=== PATIENT | female | born 1965 | race Hispanic/Latino ===

== ENCOUNTER 2018-08-23 23:25 | Inpatient (IN) | payer MEDICAID ==
[~2018-08-23] VITALS: Ht 154.9 cm; Wt 72.6 kg
[2018-08-23] MEDS ORDERED: MAGNESIUM 2GM PREMIX 50ML 50 ML IV ONE (23:32)
[2018-08-23] MEDS ORDERED: CEFTRIAXONE SODIUM 2 GM VIAL ONE (23:38)
[2018-08-23] MEDS ORDERED: ALBUTEROL SULFATE 0.083% 2.5 MG/3 ML INH IH ONE (23:41)
[2018-08-24 00:10] LABS: BASOPHILS % (AUTO) 0.5 % (0.0-5.0); EOSINOPHILS % (AUTO) 0.2 % (0.0-8.0); HEMATOCRIT 41.1 % (36-48); LYMPHOCYTES % (AUTO) 21.4 % (21.0-51.0); MEAN CORPUSCULAR HEMOGLOBIN 29.5 pg (27.0-33.0); MEAN CORPUSCULAR HGB CONC 32.9 g/dL (32.0-36.0); MEAN CORPUSCULAR VOLUME 89.5 fL (79-99); MONOCYTES % (AUTO) 2.4 % (3.0-13.0); NEUTROPHILS % (AUTO) 75.5 % (40.0-77.0); PLATELET COUNT (AUTO) 289 K/uL (130-400); RED BLOOD CELL COUNT(AUTO) 4.59 MIL/uL (4.00-5.50); RED CELL DISTRIBUTION WIDTH 14.9 % (11.0-15.5); WHITE BLOOD COUNT (AUTO) 11.1 K/uL (4.8-10.8)
[2018-08-24 00:19] LABS: CREATININE 0.9 mg/dL (0.5-1.5); POTASSIUM 3.4 mmol/L (3.5-5.1)
[2018-08-24 00:22] LABS: INR 0.89 (0.85-1.15); PARTIAL THROMBOPLASTIN TIME 22.4 SEC (26.3-35.5); PROTHROMBIN TIME 9.4 SEC (9.6-11.6)
[2018-08-24 00:23] LABS: ALBUMIN 3.9 g/dL (3.5-5.0); BILIRUBIN,DIRECT 0.1 mg/dL (0.0-0.3); BILIRUBIN,TOTAL 0.3 mg/dL (0.2-1.0); TOTAL PROTEIN, SERUM 7.9 g/dL (6.0-8.3)
[2018-08-24 00:32] LABS: B-TYPE NATRIURETIC PEPTIDE < 5 pg/mL (0-100)
[2018-08-24 01:10] LABS: AMPHET/METH SCREEN,URINE NEGATIVE (NEGATIVE); BARBITURATE SCREEN, URINE NEGATIVE (NEGATIVE); BENZODIAZEPINES SCREEN,URINE POSITIVE (NEGATIVE); CANNABINOID SCREEN,URINE NEGATIVE (NEGATIVE); COCAINE SCREEN,URINE NEGATIVE (NEGATIVE); OPIATE SCREEN,URINE NEGATIVE (NEGATIVE); PHENCYCLIDINE SCREEN,URINE NEGATIVE (NEGATIVE)
[2018-08-24] MEDS ORDERED: LORAZEPAM 2 MG/ML 1 ML VIAL ONE (03:00)
[2018-08-24] MEDS ORDERED: PROMETHAZINE/CODEINE 6.25-10MG/5ML CUP PO PRN (04:15)
[2018-08-24] MEDS ORDERED: LORAZEPAM 2 MG/ML 1 ML VIAL IVP SCH (04:15)
[2018-08-24] MEDS ORDERED: ONDANSETRON HCL 4 MG/2 ML VIAL IVP PRN (04:15)
[2018-08-24] MEDS ORDERED: ACETAMINOPHEN 325 MG TAB PO PRN (04:15)
[2018-08-24] MEDS ORDERED: AZITHROMYCIN 500MG+NS 250ML 250 ML IV ONE (04:24)
[2018-08-24] MEDS: AZITHROMYCIN 500MG+NS 250ML 250 ML IV SCH (04:30)
[2018-08-24] MEDS ORDERED: IPRATROPIUM/ALBUTEROL SULFATE 3 ML SOLUTION IH ONE ×2 (05:31→09:56)
[2018-08-24] MEDS: IPRATROPIUM/ALBUTEROL SULFATE 3 ML SOLUTION IH SCH ×3 (05:33→14:00)
[2018-08-24 07:29] LABS: ABG BASE EXCESS -4.3 mmol/L (-2.0-3.0); ABG HCO3 20.7 mmol/L (21.0-28.0); ABG OXYGEN SATURATION 99.8 % (95.0-99.0); ABG PCO2 38 mmHg (32-45)
[2018-08-24] MEDS ORDERED: PROMETHAZINE/CODEINE 6.25-10MG/5ML CUP ONE (07:50)
[2018-08-24] MEDS ORDERED: DIAZEPAM 5 MG TABLET ONE (08:18)
[2018-08-24] MEDS ORDERED: DEXAMETHASONE SOD PHOSPHATE 4 MG/ML 1ML VIAL IVP SCH (09:00)
[2018-08-24 10:35] VITALS: BP 158/91
[2018-08-24] MEDS ORDERED: LORAZEPAM 2 MG/ML 1 ML VIAL IVP PRN (10:45)
[2018-08-24 11:00] VITALS: BP 149/87
[2018-08-24] MEDS ORDERED: IBUP-2077 PO (11:23)
[2018-08-24] MEDS ORDERED: FERS325 PO (11:23)
[2018-08-24] MEDS ORDERED: IPRAHFA IH (11:23)
[2018-08-24] MEDS ORDERED: ALBU8.5H8 IH (11:23)
[2018-08-24] MEDS ORDERED: PRED20TA3 PO (11:23)
[2018-08-24] MEDS ORDERED: BUDE10.2 IH (11:23)
[2018-08-24] MEDS ORDERED: AMOX1TAB16 PO (11:23)
[2018-08-24] MEDS: SODIUM CHLORIDE 0.9% 1000ML 1,000 ML IV SCH (11:41)
[2018-08-24] MEDS ORDERED: ALBUTEROL SULFATE 0.083% 2.5 MG/3 ML INH IH PRN (15:30)
[2018-08-24 16:00] VITALS: BP 137/92
[2018-08-24] MEDS: IPRATROPIUM 0.5 MG/2.5 ML INH IH SCH ×2 (18:40→23:28)
[2018-08-24] MEDS: BUDESONIDE 0.5 MG/2 ML INH IH SCH (18:40)
[2018-08-24] MEDS ORDERED: POTASSIUM CHLORIDE 20MEQ/100ML 100 ML IV PRN (19:00)
[2018-08-24] MEDS ORDERED: POTASSIUM CHLORIDE 10% ELIXIR 20 MEQ/15 ML UDCUP PO PRN (19:00)
[2018-08-24] MEDS ORDERED: DEXTROSE 50%-WATER 50 ML DISP.SYRIN IV PRN (19:00)
[2018-08-24] MEDS ORDERED: POTASSIUM CHLORIDE 20 MEQ ERTAB PO PRN (19:00)
[2018-08-24] MEDS ORDERED: LIDOCAINE HCL-MPF 1% 2ML VIAL IVP PRN (19:00)
[2018-08-24] MEDS ORDERED: GLUCAGON 1MG KIT 1 MG ML IM PRN (19:00)
[2018-08-24 19:20] LABS: APPEARANCE,URINE Clear (CLEAR); BILIRUBIN,URINE Negative (NEGATIVE); COLOR,URINE Yellow (YELLOW); GLUCOSE, URINE (UA) TRACE mg/dL (NEGATIVE); KETONES,URINE Negative (NEGATIVE); LEUKOCYTE ESTERASE ,URINE Negative (NEGATIVE); NITRATE,URINE Negative (NEGATIVE); OCCULT BLOOD,URINE Small (NEGATIVE); PROTEIN,URINE Negative (NEGATIVE); UROBILINOGEN,URINE 0.2 mg/dL (0.2-1.0)
[2018-08-24 19:39] LABS: BACTERIA,URINE Few /HPF (None Seen); WBC,URINE 0-1 /HPF (0-1)
[2018-08-24 19:45] VITALS: BP 136/73
[2018-08-24] MEDS: MONTELUKAST SODIUM 10 MG TAB PO SCH (20:46)
[2018-08-24] MEDS: METHYLPREDNISOLONE SOD SUCC 40MG/ML 1ML IVP SCH (20:46)
[2018-08-24] MEDS: FAMOTIDINE 20MG TAB 20 MG TAB PO SCH (20:46)
[2018-08-24] MEDS: LORAZEPAM 2 MG/ML 1 ML VIAL IVP PRN (20:49)
[2018-08-24] MEDS: ACETAMINOPHEN 325 MG TAB PO PRN (22:31)
[2018-08-24 23:08] VITALS: BP 130/69
[2018-08-25] MEDS: DIAZEPAM 5 MG TABLET PO PRN ×2 (01:36→08:23)
[2018-08-25 03:40] VITALS: BP 145/87
[2018-08-25 04:45] LABS: BASOPHILS % (AUTO) 0.1 % (0.0-5.0); HEMATOCRIT 36.7 % (36-48); LYMPHOCYTES % (AUTO) 9.8 % (21.0-51.0); MEAN CORPUSCULAR HEMOGLOBIN 29.5 pg (27.0-33.0); MEAN CORPUSCULAR HGB CONC 33.3 g/dL (32.0-36.0); MEAN CORPUSCULAR VOLUME 88.5 fL (79-99); NEUTROPHILS % (AUTO) 87.1 % (40.0-77.0); PLATELET COUNT (AUTO) 281 K/uL (130-400); RED BLOOD CELL COUNT(AUTO) 4.15 MIL/uL (4.00-5.50); WHITE BLOOD COUNT (AUTO) 16.8 K/uL (4.8-10.8)
[2018-08-25 05:04] LABS: CREATININE 0.9 mg/dL (0.5-1.5)
[2018-08-25] MEDS: AZITHROMYCIN 500MG+NS 250ML 250 ML IV SCH (06:02)
[2018-08-25] MEDS: IPRATROPIUM 0.5 MG/2.5 ML INH IH SCH ×5 (07:16→21:47)
[2018-08-25] MEDS: BUDESONIDE 0.5 MG/2 ML INH IH SCH ×2 (07:25→18:34)
[2018-08-25 08:00] VITALS: BP 142/89
[2018-08-25] MEDS: METHYLPREDNISOLONE SOD SUCC 40MG/ML 1ML IVP SCH ×2 (08:23→20:39)
[2018-08-25] MEDS: FAMOTIDINE 20MG TAB 20 MG TAB PO SCH ×2 (08:26→20:39)
[2018-08-25] MEDS: ACETYLCYSTEINE 10% 100MG/ML 4ML VIAL IH SCH ×4 (10:47→21:47)
[2018-08-25 11:00] VITALS: BP 144/87
[2018-08-25] MEDS: SODIUM CHLORIDE 0.9% 1000ML 1,000 ML IV SCH ×3 (12:15→20:39)
[2018-08-25] MEDS: LORAZEPAM 2 MG/ML 1 ML VIAL IVP PRN ×2 (14:05→22:19)
[2018-08-25] MEDS: ACETAMINOPHEN 325 MG TAB PO PRN (14:26)
[2018-08-25 16:00] VITALS: BP 140/80
[2018-08-25] MEDS ORDERED: ALPR2TAB7 PO (17:15)
[2018-08-25] MEDS ORDERED: D-ME118S56 PO (17:15)
[2018-08-25] MEDS ORDERED: LORA10CA9 PO (17:15)
[2018-08-25] MEDS ORDERED: LISI-617 PO (17:15)
[2018-08-25] MEDS ORDERED: SERT50TA12 PO (17:15)
[2018-08-25] MEDS ORDERED: MONT10TA24 PO (17:15)
[2018-08-25] MEDS ORDERED: HYDR-4068 PO (17:15)
[2018-08-25] MEDS ORDERED: OMEP40CA37 PO (17:15)
[2018-08-25] MEDS ORDERED: PREG75 PO (17:15)
[2018-08-25 20:13] VITALS: BP 120/90
[2018-08-25] MEDS: MONTELUKAST SODIUM 10 MG TAB PO SCH (20:39)
[2018-08-26 00:15] VITALS: BP 120/84
[2018-08-26] MEDS: IPRATROPIUM 0.5 MG/2.5 ML INH IH SCH ×6 (02:19→22:30)
[2018-08-26] MEDS: ACETYLCYSTEINE 10% 100MG/ML 4ML VIAL IH SCH ×3 (02:19→10:18)
[2018-08-26] MEDS: AZITHROMYCIN 500MG+NS 250ML 250 ML IV SCH (03:47)
[2018-08-26] MEDS: ACETAMINOPHEN 325 MG TAB PO PRN (03:51)
[2018-08-26 04:00] VITALS: BP 130/88
[2018-08-26 05:56] LABS: BASOPHILS % (AUTO) 0.1 % (0.0-5.0); HEMATOCRIT 38.8 % (36-48); LYMPHOCYTES % (AUTO) 10.6 % (21.0-51.0); MEAN CORPUSCULAR HEMOGLOBIN 29.6 pg (27.0-33.0); MEAN CORPUSCULAR HGB CONC 33.8 g/dL (32.0-36.0); MEAN CORPUSCULAR VOLUME 87.7 fL (79-99); MONOCYTES % (AUTO) 4.7 % (3.0-13.0); NEUTROPHILS % (AUTO) 84.6 % (40.0-77.0); PLATELET COUNT (AUTO) 282 K/uL (130-400); RED BLOOD CELL COUNT(AUTO) 4.43 MIL/uL (4.00-5.50); RED CELL DISTRIBUTION WIDTH 15.3 % (11.0-15.5); WHITE BLOOD COUNT (AUTO) 15.2 K/uL (4.8-10.8)
[2018-08-26 06:07] LABS: POTASSIUM 4.1 mmol/L (3.5-5.1)
[2018-08-26] MEDS: BUDESONIDE 0.5 MG/2 ML INH IH SCH ×2 (06:37→18:22)
[2018-08-26 07:00] VITALS: BP 132/90
[2018-08-26] MEDS: DIAZEPAM 5 MG TABLET PO PRN (08:11)
[2018-08-26] MEDS: FAMOTIDINE 20MG TAB 20 MG TAB PO SCH ×2 (08:11→20:42)
[2018-08-26] MEDS: METHYLPREDNISOLONE SOD SUCC 40MG/ML 1ML IVP SCH ×2 (08:12→20:42)
[2018-08-26] MEDS ORDERED: ALPRAZOLAM 1 MG TAB PO SCH (10:12)
[2018-08-26] MEDS ORDERED: IBUPROFEN 800 MG TAB PO PRN (10:15)
[2018-08-26] MEDS ORDERED: BROMPHENIR PSEUDOEPHED DM PO PRN (10:15)
[2018-08-26 11:00] VITALS: BP 135/95
[2018-08-26] MEDS: LORAZEPAM 2 MG/ML 1 ML VIAL IVP PRN (12:32)
[2018-08-26] MEDS: SERTRALINE HCL 50 MG TABLET PO SCH (12:41)
[2018-08-26] MEDS: LISINOPRIL 5 MG TABLET PO SCH (12:41)
[2018-08-26] MEDS: PANTOPRAZOLE SODIUM 40 MG TABLET.DR PO SCH (12:41)
[2018-08-26] MEDS: AMOXICILLIN/POTASSIUM CLAV 875-125 TABLET PO SCH ×2 (12:41→20:41)
[2018-08-26] MEDS: SODIUM CHLORIDE 0.9% 1000ML 1,000 ML IV SCH ×2 (12:42→20:52)
[2018-08-26] MEDS: PREGABALIN 75 MG CAPSULE PO SCH ×2 (12:42→20:41)
[2018-08-26] MEDS: ALPRAZOLAM 1 MG TAB PO SCH ×2 (14:00→20:41)
[2018-08-26 16:00] VITALS: BP 136/83
[2018-08-26 20:00] VITALS: BP 132/84
[2018-08-26] MEDS: MONTELUKAST SODIUM 10 MG TAB PO SCH (20:41)
[2018-08-26] MEDS ORDERED: MONTELUKAST SODIUM 10 MG TAB PO SCH (21:00)
[2018-08-27] VITALS: BP 144/80
[2018-08-27] MEDS: IPRATROPIUM 0.5 MG/2.5 ML INH IH SCH ×3 (02:20→10:06)
[2018-08-27] MEDS: ACETAMINOPHEN 325 MG TAB PO PRN (02:48)
[2018-08-27] MEDS: LORAZEPAM 2 MG/ML 1 ML VIAL IVP PRN (02:49)
[2018-08-27 04:00] VITALS: BP 142/92
[2018-08-27] MEDS: AZITHROMYCIN 500MG+NS 250ML 250 ML IV SCH (04:13)
[2018-08-27] MEDS: BUDESONIDE 0.5 MG/2 ML INH IH SCH (06:32)
[2018-08-27 07:30] VITALS: BP 129/98
[2018-08-27] MEDS ORDERED: PREDNISONE 20 MG TABLET PO SCH (08:00)
[2018-08-27] MEDS ORDERED: LEVO500T2 PO (08:57)
[2018-08-27] MEDS ORDERED: FERROUS SULFATE 325 MG TABLET.DR PO SCH (09:00)
[2018-08-27] MEDS ORDERED: LORATADINE 10 MG TABLET PO SCH (09:00)
[2018-08-27] MEDS: AMOXICILLIN/POTASSIUM CLAV 875-125 TABLET PO SCH (09:54)
[2018-08-27] MEDS: METHYLPREDNISOLONE SOD SUCC 40MG/ML 1ML IVP SCH (09:54)
[2018-08-27] MEDS: SERTRALINE HCL 50 MG TABLET PO SCH (09:55)
[2018-08-27] MEDS: ALPRAZOLAM 1 MG TAB PO SCH (09:55)
[2018-08-27] MEDS: LISINOPRIL 5 MG TABLET PO SCH (09:55)
[2018-08-27] MEDS: PREGABALIN 75 MG CAPSULE PO SCH (09:55)
[2018-08-27] MEDS: PANTOPRAZOLE SODIUM 40 MG TABLET.DR PO SCH (09:55)
[2018-08-27] MEDS: FAMOTIDINE 20MG TAB 20 MG TAB PO SCH (09:55)
[2018-08-27 11:00] VITALS: BP 140/91
== END 2018-08-27 11:50 | disposition home or self-care (01) | DRG 720 ==
LOC: EDH 23:25 → EDHIP 23:26 → 4CH 08-24 10:31 → 3BH 08-25 13:17
PROVIDERS: ADMIT Hospitalist; ATTEND Hospitalist
PROC: 5A09357 Assistance with Respiratory Ventilation, Less than 24 Consecutive Hours, Continuous Positive Airway Pressure (ICD-10-PCS; principal; 2018-08-23)
PROC: 5A09357 Assistance with Respiratory Ventilation, Less than 24 Consecutive Hours, Continuous Positive Airway Pressure (ICD-10-PCS; 2018-08-24)
DX: A41.9 Sepsis, unspecified organism (principal); J45.902 Unspecified asthma with status asthmaticus; I10 Essential (primary) hypertension; F41.9 Anxiety disorder, unspecified; R06.03 Acute respiratory distress
CPT/HCPCS: 36415; 36600; 71045; 72040; 72100; 74018; 80048; 80076; 80305; 81001; 82550; 82803; 83605; 83880; 84484; 85025; 85610; 85730; 87040; 87088; 87804; 93005; 94640; 94644; 94660; 94664; J0456; J0696; J1100; J2060; J2405; J2920; J3475; J7030; J7608; Q0169

== ENCOUNTER 2018-10-28 18:17 | Emergency (ER) | payer MEDICAID ==
[~2018-10-28 18:17] MED LIST: ALBU8.5H8 IH; ALPR2TAB7 PO; BUDE10.2 IH; D-ME118S56 PO; FERS325 PO; HYDR-4068 PO; IBUP-2077 PO; IPRAHFA IH; LEVO500T2 PO; LISI-617 PO; LORA10CA9 PO; MONT10TA24 PO; OMEP40CA37 PO; PRED20TA3 PO; PREG75 PO; SERT50TA12 PO
[2018-10-28 18:59] LABS: BASOPHILS % (AUTO) 0.8 % (0.0-5.0); EOSINOPHILS % (AUTO) 0.7 % (0.0-8.0); LYMPHOCYTES % (AUTO) 30.7 % (21.0-51.0); MEAN CORPUSCULAR HEMOGLOBIN 28.6 pg (27.0-33.0); MEAN CORPUSCULAR HGB CONC 33.1 g/dL (32.0-36.0); MEAN CORPUSCULAR VOLUME 86.5 fL (79-99); NEUTROPHILS % (AUTO) 56.8 % (40.0-77.0); PLATELET COUNT (AUTO) 295 K/uL (130-400); RED BLOOD CELL COUNT(AUTO) 4.63 MIL/uL (4.00-5.50); RED CELL DISTRIBUTION WIDTH 14.1 % (11.0-15.5); WHITE BLOOD COUNT (AUTO) 8.8 K/uL (4.8-10.8)
[2018-10-28 19:38] LABS: CREATININE 0.8 mg/dL (0.5-1.5); POTASSIUM 3.5 mmol/L (3.5-5.1)
[2018-10-28 19:42] LABS: INR 0.94 (0.85-1.15); PROTHROMBIN TIME 9.9 SEC (9.6-11.6)
[2018-10-28 19:43] LABS: ALBUMIN 3.7 g/dL (3.5-5.0); BILIRUBIN,TOTAL 0.5 mg/dL (0.2-1.0); TOTAL PROTEIN, SERUM 7.3 g/dL (6.0-8.3)
[2018-10-28] MEDS ORDERED: ALBUTEROL SULFATE 0.083% 2.5 MG/3 ML INH IH ONE (19:46)
[2018-10-28] MEDS ORDERED: IPRATROPIUM/ALBUTEROL SULFATE 3 ML SOLUTION IH ONE ×2 (20:31→22:03)
[2018-10-28] MEDS ORDERED: SODIUM CHLORIDE 0.9% 1000ML 2,000 ML IV ONE (22:08)
[2018-10-28] MEDS ORDERED: METHYLPREDNISOLONE SOD SUCC 125MG/2ML VIAL ONE (22:08)
== END 2018-10-29 01:05 | disposition home or self-care (01) ==
LOC: EDH 18:17
DX: J45.901 Unspecified asthma with (acute) exacerbation (principal); K52.9 Noninfective gastroenteritis and colitis, unspecified; I10 Essential (primary) hypertension
CPT/HCPCS: 36415; 71045; 80053; 82550; 84484; 85025; 85610; 85730; 87804 ×2; 93005; 94640 ×3; 96361; 96374; 99285; J2930; J7030

== ENCOUNTER 2019-01-02 13:14 | Emergency (ER) | payer MEDICAID ==
[2019-01-02] MEDS ORDERED: ONDANSETRON HCL 4 MG/2 ML VIAL ONE (13:27)
[2019-01-02 13:40] LABS: BASOPHILS % (AUTO) 0.5 % (0.0-5.0); EOSINOPHILS % (AUTO) 0.9 % (0.0-8.0); HEMATOCRIT 42.9 % (36-48); LYMPHOCYTES % (AUTO) 28.8 % (21.0-51.0); MEAN CORPUSCULAR HEMOGLOBIN 27.6 pg (27.0-33.0); MEAN CORPUSCULAR HGB CONC 33.1 g/dL (32.0-36.0); MEAN CORPUSCULAR VOLUME 83.4 fL (79-99); NEUTROPHILS % (AUTO) 61.8 % (40.0-77.0); NUCLEATED RED BLOOD CELLS 0.1 % (0.0-0.19); PLATELET COUNT (AUTO) 287 K/uL (130-400); RED BLOOD CELL COUNT(AUTO) 5.14 MIL/uL (4.00-5.50); RED CELL DISTRIBUTION WIDTH 14.2 % (11.0-15.5); WHITE BLOOD COUNT (AUTO) 8.1 K/uL (4.8-10.8)
[2019-01-02 13:48] LABS: CREATININE 0.7 mg/dL (0.5-1.5); POTASSIUM 3.2 mmol/L (3.5-5.1)
[2019-01-02 13:52] LABS: ALBUMIN 4.2 g/dL (3.5-5.0); BILIRUBIN,TOTAL 0.4 mg/dL (0.2-1.0); TOTAL PROTEIN, SERUM 7.7 g/dL (6.0-8.3)
[2019-01-02] MEDS ORDERED: IPRATROPIUM/ALBUTEROL SULFATE 3 ML SOLUTION IH ONE (14:13)
== END 2019-01-02 16:02 | disposition home or self-care (01) ==
LOC: EDH 13:14
DX: J45.21 Mild intermittent asthma with (acute) exacerbation (principal); J20.9 Acute bronchitis, unspecified; I10 Essential (primary) hypertension; F41.9 Anxiety disorder, unspecified; F31.9 Bipolar disorder, unspecified
CPT/HCPCS: 36415; 71045; 80053; 84484; 85025; 93005; 94640; 96374; 99284; J2405

== ENCOUNTER 2019-12-30 06:24 | Emergency (ER) | payer MEDICAID ==
[~2019-12-30 06:24] MED LIST changes: -MONT10TA24 PO; +MONT10TA26 PO; +OMEP40CA13 PO; -OMEP40CA37 PO
[2019-12-30] MEDS ORDERED: MAG HYDROX/AL HYDROX/SIMETH ES 30 ML SUSP UDCUP ONE (06:35)
[2019-12-30] MEDS ORDERED: LIDOCAINE HCL 2% VISCOUS 15 ML UDCUP ONE (06:35)
[2019-12-30] MEDS ORDERED: METHYLPREDNISOLONE SOD SUCC 125MG/2ML VIAL ONE (06:36)
[2019-12-30] MEDS ORDERED: ONDANSETRON HCL 4 MG/2 ML VIAL ONE (06:36)
[2019-12-30] MEDS ORDERED: DiphenhydrAMINE HCL 50 MG/ML VIAL ONE (06:36)
[2019-12-30] MEDS ORDERED: IPRATROPIUM/ALBUTEROL SULFATE 3 ML SOLUTION IH ONE (06:40)
[2019-12-30] MEDS ORDERED: ALBUTEROL SULFATE 0.083% 2.5 MG/3 ML INH IH ONE (06:40)
[2019-12-30 07:04] LABS: BASOPHILS % (AUTO) 0.3 % (0.0-5.0); EOSINOPHILS % (AUTO) 0.6 % (0.0-8.0); HEMATOCRIT 43.9 % (36-48); LYMPHOCYTES % (AUTO) 32.6 % (21.0-51.0); MEAN CORPUSCULAR HEMOGLOBIN 27.3 pg (27.0-33.0); MEAN CORPUSCULAR HGB CONC 31.2 g/dL (32.0-36.0); MEAN CORPUSCULAR VOLUME 87.6 fL (79-99); MONOCYTES % (AUTO) 11.4 % (3.0-13.0); NEUTROPHILS % (AUTO) 54.6 % (40.0-77.0); PLATELET COUNT (AUTO) 297 K/uL (130-400); RED BLOOD CELL COUNT(AUTO) 5.01 MIL/uL (4.00-5.50); RED CELL DISTRIBUTION WIDTH 14.5 % (11.0-15.5); WHITE BLOOD COUNT (AUTO) 9.9 K/uL (4.8-10.8)
[2019-12-30 07:12] LABS: CREATININE 0.9 mg/dL (0.5-1.5); POTASSIUM 3.9 mmol/L (3.5-5.1)
[2019-12-30 07:19] LABS: ALBUMIN 4.2 g/dL (3.5-5.0); BILIRUBIN,TOTAL 0.3 mg/dL (0.2-1.0); TOTAL PROTEIN, SERUM 7.6 g/dL (6.0-8.3)
[2019-12-30 07:20] LABS: INR 0.92 (0.85-1.15); PARTIAL THROMBOPLASTIN TIME 25.2 SEC (26.3-35.5); PROTHROMBIN TIME 9.7 SEC (9.6-11.6)
[2019-12-30 07:30] LABS: B-TYPE NATRIURETIC PEPTIDE 8 pg/mL (0-100)
[2019-12-30 07:31] LABS: APPEARANCE,URINE Clear (CLEAR); BILIRUBIN,URINE Negative (NEGATIVE); COLOR,URINE Yellow (YELLOW); GLUCOSE, URINE (UA) Negative (NEGATIVE); KETONES,URINE Negative (NEGATIVE); LEUKOCYTE ESTERASE ,URINE Negative (NEGATIVE); NITRATE,URINE Negative (NEGATIVE); OCCULT BLOOD,URINE Small (NEGATIVE); PROTEIN,URINE Negative (NEGATIVE); UROBILINOGEN,URINE 0.2 mg/dL (0.2-1.0)
[2019-12-30] MEDS ORDERED: AZITHROMYCIN 250 MG TABLET PO ONE (07:47)
[2019-12-30 07:48] LABS: BACTERIA,URINE Rare /HPF (None Seen); SQUAMOUS EPITHELIAL CELL,UR Rare /HPF (0-2); WBC,URINE 0-1 /HPF (0-1)
[2019-12-30] MEDS ORDERED: ACETAMINOPHEN EXTRA STRENGTH 500 MG TABLET ONE (07:48)
== END 2019-12-30 08:03 | disposition home or self-care (01) ==
LOC: EDH 06:24
DX: J45.901 Unspecified asthma with (acute) exacerbation (principal); J20.9 Acute bronchitis, unspecified; J11.1 Influenza due to unidentified influenza virus with other respiratory manifestations; F31.9 Bipolar disorder, unspecified; F41.9 Anxiety disorder, unspecified; I10 Essential (primary) hypertension; J44.9 Chronic obstructive pulmonary disease, unspecified
CPT/HCPCS: 36415; 71045; 80053; 81001; 82550; 83605; 83690; 83880; 84484; 85025; 85610; 85730; 87040 ×2; 87804 ×2; 93005; 94640 ×3; 96374; 96375; 99285; J1200; J2405; J2930

== ENCOUNTER 2021-06-27 10:18 | Emergency (ER) | payer MEDICAID ==
[~2021-06-27] VITALS: Ht 154.9 cm; Wt 66.7 kg
[~2021-06-27 10:18] MED LIST changes: -LISI-617 PO; +LISI-809 PO; -MONT10TA26 PO; +MONT10TA32 PO; -OMEP40CA13 PO; +OMEP40CA21 PO; +SERT-439 PO; -SERT50TA12 PO
[2021-06-27 10:44] VITALS: BP 132/89
[2021-06-27 10:53] LABS: BASOPHILS % (AUTO) 0.3 % (0.0-5.0); EOSINOPHILS % (AUTO) 1.6 % (0.0-8.0); HEMATOCRIT 43.2 % (36-48); LYMPHOCYTES % (AUTO) 30.3 % (21.0-51.0); MEAN CORPUSCULAR HEMOGLOBIN 28.3 pg (27.0-33.0); MEAN CORPUSCULAR HGB CONC 32.4 g/dL (32.0-36.0); MEAN CORPUSCULAR VOLUME 87.4 fL (79-99); MONOCYTES % (AUTO) 7.9 % (3.0-13.0); NEUTROPHILS % (AUTO) 59.5 % (40.0-77.0); PLATELET COUNT (AUTO) 296 K/uL (130-400); RED BLOOD CELL COUNT(AUTO) 4.94 MIL/uL (4.00-5.50); RED CELL DISTRIBUTION WIDTH 14.2 % (11.0-15.5); WHITE BLOOD COUNT (AUTO) 9.8 K/uL (4.8-10.8)
[2021-06-27 11:11] LABS: B-TYPE NATRIURETIC PEPTIDE 11 pg/mL (0-100)
[2021-06-27 11:22] LABS: CREATININE 0.8 mg/dL (0.5-1.5); POTASSIUM 3.4 mmol/L (3.5-5.1)
[2021-06-27 11:27] LABS: BILIRUBIN,TOTAL 0.5 mg/dL (0.2-1.0); TOTAL PROTEIN, SERUM 7.8 g/dL (6.0-8.3)
[2021-06-27 11:39] LABS: INR 0.96 (0.85-1.15); PROTHROMBIN TIME 10.5 SEC (9.6-11.6)
[2021-06-27 11:41] LABS: PARTIAL THROMBOPLASTIN TIME 22.9 SEC (26.3-35.5)
[2021-06-27 12:15] VITALS: BP 123/69
[2021-06-27] MEDS ORDERED: SOLU-MEDROL 125MG VIAL IVP ONE (12:30)
[2021-06-27] MEDS ORDERED: IPRATROPIUM/ALBUTEROL SULFATE 3 ML SOLUTION IH PRN (12:30)
[2021-06-27 12:45] VITALS: BP 112/76
[2021-06-27 13:10] LABS: AMPHET/METH SCREEN,URINE NEGATIVE (NEGATIVE); BARBITURATE SCREEN, URINE NEGATIVE (NEGATIVE); BENZODIAZEPINES SCREEN,URINE NEGATIVE (NEGATIVE); CANNABINOID SCREEN,URINE NEGATIVE (NEGATIVE); COCAINE SCREEN,URINE NEGATIVE (NEGATIVE); OPIATE SCREEN,URINE NEGATIVE (NEGATIVE); PHENCYCLIDINE SCREEN,URINE NEGATIVE (NEGATIVE)
[2021-06-27] MEDS ORDERED: PRED20 PO (15:03)
[2021-06-27 15:25] VITALS: BP 125/67
[2021-06-27] MEDS ORDERED: IPRATROPIUM/ALBUTEROL SULFATE 3 ML SOLUTION IH ONE (15:30)
== END 2021-06-27 15:26 | disposition home or self-care (01) ==
LOC: EDH 10:18
DX: J44.1 Chronic obstructive pulmonary disease with (acute) exacerbation (principal); R06.00 Dyspnea, unspecified; Z20.822 Contact with and (suspected) exposure to COVID-19; Z79.1 Long term (current) use of non-steroidal anti-inflammatories (NSAID); Z79.51 Long term (current) use of inhaled steroids; Z79.52 Long term (current) use of systemic steroids; Z79.899 Other long term (current) drug therapy
CPT/HCPCS: 36415; 71045; 80053; 80305; 82550; 83880; 84484; 85025; 85610; 85730; 87635; 93005; 94640; 96374; 99285; C9803; J2930

== ENCOUNTER 2022-08-19 04:36 | Emergency (ER) | payer MEDICAID ==
[~2022-08-19] VITALS: Ht 154.9 cm; Wt 66.2 kg
[~2022-08-19 04:36] MED LIST changes: -LISI-809 PO; +LISI5TAB21 PO; +MONT-39 PO; -MONT10TA32 PO; +PRED20 PO
[2022-08-19 05:21] LABS: BASOPHILS % (AUTO) 0.2 % (0.0-5.0); EOSINOPHILS % (AUTO) 1.3 % (0.0-8.0); HEMATOCRIT 41.6 % (36-48); LYMPHOCYTES % (AUTO) 41.1 % (21.0-51.0); MEAN CORPUSCULAR HEMOGLOBIN 27.6 pg (27.0-33.0); MEAN CORPUSCULAR HGB CONC 32.5 g/dL (32.0-36.0); MEAN CORPUSCULAR VOLUME 85.1 fL (79-99); MONOCYTES % (AUTO) 8.1 % (3.0-13.0); NEUTROPHILS % (AUTO) 48.8 % (40.0-77.0); PLATELET COUNT (AUTO) 287 K/uL (130-400); RED BLOOD CELL COUNT(AUTO) 4.89 MIL/uL (4.00-5.50); WHITE BLOOD COUNT (AUTO) 12.2 K/uL (4.8-10.8)
[2022-08-19] MEDS ORDERED: LACTATED RINGERS 1000ML 1,000 ML IV ONE (05:30)
[2022-08-19] MEDS ORDERED: MECLIZINE HCL 25 MG TABLET PO ONE (05:30)
[2022-08-19] MEDS ORDERED: ONDANSETRON 4MG INJ IVP ONE (05:30)
[2022-08-19 05:35] LABS: CREATININE 0.8 mg/dL (0.5-1.5); POTASSIUM 3.4 mmol/L (3.5-5.1)
[2022-08-19 05:38] LABS: ALBUMIN 3.9 g/dL (3.5-5.0); TOTAL PROTEIN, SERUM 7.7 g/dL (6.0-8.3)
[2022-08-19 06:15] VITALS: BP 135/62
[2022-08-19] MEDS ORDERED: MECL-226 PO (06:37)
== END 2022-08-19 07:04 | disposition home or self-care (01) ==
LOC: EDH 04:36
DX: H81.11 Benign paroxysmal vertigo, right ear (principal); M19.90 Unspecified osteoarthritis, unspecified site; I10 Essential (primary) hypertension; Z79.899 Other long term (current) drug therapy
CPT/HCPCS: 99283; 96374; 96361; 80053; 85025; 36415; J7120; J2405

== ENCOUNTER 2022-11-07 15:44 | Emergency (ER) | payer MEDICAID ==
[~2022-11-07] VITALS: Ht 154.9 cm; Wt 63.5 kg
[~2022-11-07 15:44] MED LIST changes: +MECL-226 PO
[2022-11-07] MEDS ORDERED: IPRATROPIUM 0.5 MG/2.5 ML INH IH STA (17:07)
[2022-11-07] MEDS ORDERED: ALBUTEROL 0.083% 2.5 MG/3 ML INH IH ONE (17:30)
[2022-11-07] MEDS ORDERED: SOLU-MEDROL 125MG VIAL IVP ONE (17:30)
[2022-11-07] MEDS ORDERED: OSEL75 PO (17:41)
[2022-11-07 18:24] VITALS: BP 127/72
== END 2022-11-07 18:26 | disposition home or self-care (01) ==
LOC: EDH 15:44
DX: J10.1 Influenza due to other identified influenza virus with other respiratory manifestations (principal); Z20.822 Contact with and (suspected) exposure to COVID-19; J45.909 Unspecified asthma, uncomplicated; J44.9 Chronic obstructive pulmonary disease, unspecified; F41.9 Anxiety disorder, unspecified; Z79.52 Long term (current) use of systemic steroids; Z79.899 Other long term (current) drug therapy
CPT/HCPCS: 99284; 96374; 71045; 87635; 87804 ×2; 94640; C9803; J2930

== ENCOUNTER 2022-11-27 23:45 | Emergency (ER) | payer MEDICAID ==
[~2022-11-27] VITALS: Ht 154.9 cm; Wt 61.7 kg
[~2022-11-27 23:45] MED LIST changes: +OSEL75 PO
[2022-11-27 23:46] VITALS: BP 128/68
[2022-11-28] MEDS ORDERED: MECL-262 PO (00:07)
[2022-11-28] MEDS ORDERED: MECLIZINE HCL 25 MG TABLET PO ONE (00:30)
== END 2022-11-28 00:50 | disposition home or self-care (01) ==
LOC: EDH 23:45
DX: H81.10 Benign paroxysmal vertigo, unspecified ear (principal); F41.9 Anxiety disorder, unspecified; J44.9 Chronic obstructive pulmonary disease, unspecified; Z79.899 Other long term (current) drug therapy

== ENCOUNTER 2022-12-23 00:33 | Emergency (ER) | payer MEDICAID ==
[~2022-12-23] VITALS: Ht 157.5 cm; Wt 64.4 kg
[~2022-12-23 00:33] MED LIST changes: +MECL-262 PO
[2022-12-23 00:54] LABS: BASOPHILS % (AUTO) 0.3 % (0.0-5.0); EOSINOPHILS % (AUTO) 0.8 % (0.0-8.0); HEMATOCRIT 39.2 % (36-48); LYMPHOCYTES % (AUTO) 27.2 % (21.0-51.0); MEAN CORPUSCULAR HEMOGLOBIN 28.3 pg (27.0-33.0); MEAN CORPUSCULAR HGB CONC 32.1 g/dL (32.0-36.0); MEAN CORPUSCULAR VOLUME 88.1 fL (79-99); MONOCYTES % (AUTO) 8.7 % (3.0-13.0); NEUTROPHILS % (AUTO) 62.8 % (40.0-77.0); PLATELET COUNT (AUTO) 267 K/uL (130-400); RED BLOOD CELL COUNT(AUTO) 4.45 MIL/uL (4.00-5.50); RED CELL DISTRIBUTION WIDTH 13.5 % (11.0-15.5); WHITE BLOOD COUNT (AUTO) 15.6 K/uL (4.8-10.8)
[2022-12-23] MEDS ORDERED: MORPHINE 4 MG SYG IVP ONE (01:00)
[2022-12-23] MEDS ORDERED: ONDANSETRON 4MG INJ IVP ONE (01:00)
[2022-12-23] MEDS ORDERED: LACTATED RINGERS 1000ML 1,000 ML IV ONE (01:00)
[2022-12-23 01:02] LABS: CREATININE 1.1 mg/dL (0.5-1.5)
[2022-12-23 01:05] LABS: APPEARANCE,URINE CLEAR (CLEAR); BILIRUBIN,URINE NEGATIVE (NEGATIVE); COLOR,URINE LIGHT-YELLOW (YELLOW); GLUCOSE, URINE (UA) NEGATIVE (NEGATIVE); KETONES,URINE NEGATIVE (NEGATIVE); LEUKOCYTE ESTERASE ,URINE 250 Leu/uL (NEGATIVE); NITRATE,URINE NEGATIVE (NEGATIVE); OCCULT BLOOD,URINE LARGE (NEGATIVE); PROTEIN,URINE 10 mg/dL (NEGATIVE); UROBILINOGEN,URINE 0.2 mg/dL (0.2-1.0)
[2022-12-23 01:07] LABS: ALBUMIN 3.7 g/dL (3.5-5.0); TOTAL PROTEIN, SERUM 7.1 g/dL (6.0-8.3)
[2022-12-23 01:09] LABS: BACTERIA,URINE RARE /HPF (None Seen); MUCUS,URINE RARE LPF (None Seen); RBC,URINE TNTC /HPF (0-1); SQUAMOUS EPITHELIAL CELL,UR RARE /HPF (0-2); WBC,URINE 26-50 /HPF (0-1)
[2022-12-23] MEDS ORDERED: HYDROMORPHONE 1 MG INJ IVP ONE (01:30)
[2022-12-23] MEDS ORDERED: POTASSIUM CHLORIDE 10% ELIXIR 20 MEQ/15 ML UDCUP PO ONE (01:30)
[2022-12-23] MEDS ORDERED: TAMS-1 PO (02:39)
[2022-12-23] MEDS ORDERED: CEPH500T PO (02:39)
[2022-12-23] MEDS ORDERED: IBUP-2071 PO (02:39)
[2022-12-23] MEDS ORDERED: OXYC-38 PO (02:39)
[2022-12-23] MEDS ORDERED: TAMSULOSIN HCL 0.4 MG CAP.ER.24H PO SCH (03:00)
[2022-12-23] MEDS ORDERED: KETOROLAC 15MG/ML VIAL (15MG/ML) IV ONE (03:00)
[2022-12-23 03:16] VITALS: BP 124/67
== END 2022-12-23 03:21 | disposition home or self-care (01) ==
LOC: EDH 00:33
DX: N20.1 Calculus of ureter (principal); R10.31 Right lower quadrant pain; F41.9 Anxiety disorder, unspecified; M19.90 Unspecified osteoarthritis, unspecified site; J44.9 Chronic obstructive pulmonary disease, unspecified; Z79.52 Long term (current) use of systemic steroids; Z79.899 Other long term (current) drug therapy
CPT/HCPCS: 99285; 74176; 96374; 96361; 96375; 76705; 84484; 80053; 83690; 85025; 87088; 81001; 36415; J7120; J1170; J2405; J2270; J1885

== ENCOUNTER 2023-06-28 09:16 | Emergency (ER) | payer MEDICAID ==
[~2023-06-28] VITALS: Ht 154.9 cm; Wt 73.0 kg
[~2023-06-28 09:16] MED LIST changes: -ALBU8.5H8 IH; -ALPR2TAB7 PO; +BENZ200C53 PO; -BUDE10.2 IH; -D-ME118S56 PO; -FERS325 PO; +HYDR-3421 PO; -HYDR-4068 PO; -IBUP-2077 PO; -IPRAHFA IH; -LEVO500T2 PO; -LISI5TAB21 PO; -LORA10CA9 PO; -MECL-226 PO; -MECL-262 PO; -MONT-39 PO; -OMEP40CA21 PO; -OSEL75 PO; -PRED20 PO; -PRED20TA3 PO; -PREG75 PO; -SERT-439 PO; +SUCR1TAB2 PO; +TRAZ-185 PO; +VITA-348 PO
[2023-06-28 09:56] LABS: RAPID GROUP A STREP negative (NEGATIVE); SARS-CoV-2, RNA, NAAT NEGATIVE SARS CoV-2 (NEGATIVE)
[2023-06-28] MEDS ORDERED: IPRATROPIUM/ALBUTEROL SULFATE 3 ML SOLUTION IH ONE (10:00)
[2023-06-28 10:04] VITALS: PULSE 111; RESP 20
[2023-06-28 10:07] LABS: INFLUENZA TYPE A Negative For Type A (NEGATIVE); INFLUENZA TYPE B Negative For Type B (NEGATIVE)
[2023-06-28 10:15] LABS: BASOPHILS # (AUTO) 0.03 K/uL (0.00-0.20); BASOPHILS % (AUTO) 0.3 % (0.0-5.0); EOSINOPHILS # (AUTO) 0.24 K/uL (0.00-0.70); HEMATOCRIT 40.6 % (36-48); IMMATURE GRANULOCYTE ABSOLUTE 0.05 K/uL (0-1); LYMPHOCYTES # (AUTO) 2.7 K/uL (1.0-4.8); LYMPHOCYTES % (AUTO) 22.5 % (21.0-51.0); MEAN CORPUSCULAR HEMOGLOBIN 28.8 pg (27.0-33.0); MEAN CORPUSCULAR HGB CONC 32.8 g/dL (32.0-36.0); MEAN CORPUSCULAR VOLUME 87.9 fL (79-99); MONOCYTES % (AUTO) 8.4 % (3.0-13.0); NEUTROPHILS % (AUTO) 66.4 % (40.0-77.0); PLATELET COUNT (AUTO) 273 K/uL (130-400); RED BLOOD CELL COUNT(AUTO) 4.62 MIL/uL (4.00-5.50); RED CELL DISTRIBUTION WIDTH 13.8 % (11.0-15.5)
[2023-06-28 10:28] LABS: CREATININE 0.7 mg/dL (0.5-1.5); POTASSIUM 3.3 mmol/L (3.5-5.1)
[2023-06-28 10:32] LABS: ALBUMIN 3.9 g/dL (3.5-5.0); BILIRUBIN,TOTAL 0.5 mg/dL (0.2-1.0); MAGNESIUM 2.1 mg/dL (1.80-2.40); TOTAL PROTEIN, SERUM 7.8 g/dL (6.0-8.3)
[2023-06-28 11:10] LABS: APPEARANCE,URINE CLEAR (CLEAR); BILIRUBIN,URINE NEGATIVE (NEGATIVE); COLOR,URINE YELLOW (YELLOW); GLUCOSE, URINE (UA) NEGATIVE (NEGATIVE); KETONES,URINE NEGATIVE (NEGATIVE); LEUKOCYTE ESTERASE ,URINE NEGATIVE Leu/uL (NEGATIVE); NITRATE,URINE NEGATIVE (NEGATIVE); OCCULT BLOOD,URINE MODERATE (NEGATIVE); PH,URINE 5.5 (5.0-8.0); PROTEIN,URINE NEGATIVE (NEGATIVE); UROBILINOGEN,URINE 0.2 mg/dL (0.2-1.0)
[2023-06-28 11:15] LABS: ADD UA MICROSCOPIC YES
[2023-06-28 11:20] LABS: MUCUS,URINE FEW LPF (None Seen); SQUAMOUS EPITHELIAL CELL,UR RARE /HPF (0-2)
[2023-06-28] MEDS ORDERED: 0.9% NACL 500ML IV.SOLN 500 ML IV ONE (11:30)
[2023-06-28] MEDS ORDERED: ONDANSETRON 4MG INJ IVP ONE (11:30)
[2023-06-28] MEDS ORDERED: KCL 20 MEQ ERTAB PO ONE (11:30)
[2023-06-28] MEDS ORDERED: SOLU-MEDROL 125MG VIAL IVP ONE (11:30)
[2023-06-28] MEDS ORDERED: ALBUTEROL 0.083% 2.5 MG/3 ML INH IH ONE (12:00)
[2023-06-28] MEDS ORDERED: ALBUTEROL 0.042% 1.25MG/3ML IH ONE (12:00)
[2023-06-28 12:04] VITALS: PULSE 102; RESP 21
[2023-06-28] MEDS ORDERED: DOXYCYCLINE HYCLATE 100 MG TABLET PO SCH (14:00)
[2023-06-28 15:06] VITALS: BP 120/60; PULSE 82; RESP 17; O2SAT 98
[2023-06-28] MEDS ORDERED: PRED20TA3 PO (15:11)
[2023-06-28] MEDS ORDERED: ONDA4TAB10 PO (15:11)
[2023-06-28] MEDS ORDERED: DOXY-469 PO (15:11)
== END 2023-06-28 15:29 | disposition home or self-care (01) ==
LOC: EDH 09:16
DX: J44.1 Chronic obstructive pulmonary disease with (acute) exacerbation (principal); J06.9 Acute upper respiratory infection, unspecified; E86.0 Dehydration; E87.6 Hypokalemia; M19.90 Unspecified osteoarthritis, unspecified site; I10 Essential (primary) hypertension
CPT/HCPCS: 99285; 96374; 76770; 71045; 87635; 96361; 96375; 83735; 80053; 83880; 83690; 85025; 87880; 87804 ×2; 81001; 36415; 94640 ×2; C9803; J7040; J2930; J2405

== ENCOUNTER → 2023-11-30 | Outpatient (CLI) | payer MEDICAID ==
[~2023-11-30] MED LIST changes: +DOXY-469 PO; +ONDA4TAB10 PO; +PRED20TA3 PO
== END | disposition home or self-care (01) ==
LOC: LAB 10:15
PROVIDERS: ATTEND Internal Medicine Cardiovascular Disease
DX: J44.9 Chronic obstructive pulmonary disease, unspecified (principal)
CPT/HCPCS: 36415; 83880; 85378

== ENCOUNTER → 2024-01-09 | Outpatient (CLI) | payer MEDICAID | END | disposition home or self-care (01) | LOC: SHCH 10:21 | PROVIDERS: ATTEND Internal Medicine Cardiovascular Disease | DX: I07.1 Rheumatic tricuspid insufficiency (principal); R06.00 Dyspnea, unspecified; R07.9 Chest pain, unspecified | CPT/HCPCS: 93306 ==

== ENCOUNTER 2024-10-24 17:41 | Emergency (ER) | payer MEDICAID ==
[~2024-10-24] VITALS: Ht 154.9 cm; Wt 65.8 kg
[~2024-10-24 17:41] MED LIST changes: -DOXY-469 PO; +DOXY100C61 PO; +ONDA-243 PO; -ONDA4TAB10 PO
[2024-10-24 18:22] LABS: BASOPHILS # (AUTO) 0.01 K/uL (0.00-0.20); BASOPHILS % (AUTO) 0.3 % (0.0-5.0); HEMATOCRIT 41.9 % (36-48); IMMATURE GRANULOCYTE ABSOLUTE 0.02 K/uL (0-1); LYMPHOCYTES # (AUTO) 0.9 K/uL (1.0-4.8); LYMPHOCYTES % (AUTO) 31.4 % (21.0-51.0); MEAN CORPUSCULAR HEMOGLOBIN 28.5 pg (27.0-33.0); MEAN CORPUSCULAR HGB CONC 32.9 g/dL (32.0-36.0); MEAN CORPUSCULAR VOLUME 86.6 fL (79-99); MONOCYTES # (AUTO) 0.1 K/uL (0.1-1.0); MONOCYTES % (AUTO) 1.7 % (3.0-13.0); NEUTROPHILS % (AUTO) 65.9 % (40.0-77.0); PLATELET COUNT (AUTO) 238 K/uL (130-400); RED BLOOD CELL COUNT(AUTO) 4.84 MIL/uL (4.00-5.50); RED CELL DISTRIBUTION WIDTH 13.4 % (11.0-15.5)
[2024-10-24 18:29] LABS: CREATININE 0.9 mg/dL (0.5-1.0); POTASSIUM 3.6 mmol/L (3.5-5.1)
[2024-10-24 18:45] LABS: INFLUENZA TYPE A Negative For Type A (NEGATIVE); INFLUENZA TYPE B Negative For Type B (NEGATIVE)
[2024-10-24 18:46] LABS: COVID19 (SARS ANTIGEN RAPID) PRESUMPTIVE NEGATIVE (NEGATIVE)
--- NOTE | 2024-10-24 18:47 | HMCIMG ---
INDICATION: sob TECHNIQUE: CHEST 1VW COMPARISON: 06/18/2023 FINDINGS/IMPRESSION: Prominent bilateral interstitial markings which may represent bronchitis or vascular congestion in the proper clinical setting. Cardiac silhouette is within normal limits. Mild degenerative changes of the spine. The visualized upper abdomen appears unremarkable.
[2024-10-24 18:55] LABS: B-TYPE NATRIURETIC PEPTIDE 13 pg/mL (0-100)
[2024-10-24] MEDS: BENZONATATE 100 MG CAPSULE PO ONE (19:20)
[2024-10-24] MEDS: Solu-medROL 125MG VIAL IVP ONE (19:20)
[2024-10-24] MEDS: 0.9%NACL 1000ML 1,000 ML IV ONE (19:20)
[2024-10-24 19:22] VITALS: TEMP 98.9
[2024-10-24] MEDS: acetaMINOPHEN 500 MG TABLET PO ONE (19:22)
[2024-10-24 19:34] LABS: BAND NEUTROPHILS % (MANUAL) 1 % (0-2); LYMPHOCYTES % (MANUAL) 15 % (22-44); MONOCYTES % (MANUAL) 4 % (2-9); REACTIVE LYMPHOCYTES 8 % (0-0); SEGMENTED NEUTROPHILS % 72 % (40-70); TOTAL CELLS COUNTED 100
[2024-10-24 19:35] LABS: MAN.DIFF COMMENT-IMPRESSION MANUAL DIFFERENTIAL
[2024-10-24 19:36] LABS: PLATELET MORPHOLOGY COMMENT LARGE PLTS PRESENT
[2024-10-24 20:29] VITALS: PULSE 101; RESP 22
[2024-10-24] MEDS: IpraTROPium/alBUTERol SULFATE 3 ML SOLUTION IH ONE (20:29)
--- NOTE | 2024-10-24 21:04 | ERN ---
ED Note History of Present Illness Stated Complaint: FLU LIKE SYMPTOMS X 4 DAYS Chief Complaint: Flu Symptoms Time Seen by MD: 17:44 Time Seen by Midlevel: 17:44 Dictation: The patient is a 58-year-old female with a history of hypertension who presents to the emergency department with complaints of productive cough, body aches, headache, chest discomfort with the coughing onset four days ago. Patient reports she was with a family member that had flu a and was exposed. Patient reports she went to her primary doctor today and was giving albuterol treatment, zpack, steroids. Denies any nausea, vomiting Allergies: Coded Allergies: No Known Drug Allergies (Verified Allergy, Unknown, 08/24/18) Home Meds Active Scripts Ondansetron (Ondansetron Odt) 4 Mg Tab.rapdis, 4 MG PO TID PRN for NAUSEA, #30 TAB 0 Refills Prov:MORRIS FORDE MD 06/28/23 Doxycycline Monohydrate (Doxycycline Monohydrate) 100 Mg Capsule, 1 CAP PO BID for 10 Days, #20 CAP 0 Refills Prov:MORRIS FORDE MD 06/28/23 Prednisone (Prednisone) 20 Mg Tablet, 1 TAB PO AD for 3 Days, #6 TAB 0 Refills TAKE 1 TAB BY MOUTH THREE TIMES PER DAY X1 DAYS, THEN TAKE 1 TAB BY MOUTH TWICE A DAY X1 DAYS, THEN TAKE 1 TAB BY MOUTH ONCE A DAY X1 DAY. Prov:MORRIS FORDE MD 06/28/23 Reported Medications Benzonatate (Benzonatate) 200 Mg Capsule, 200 MG PO TID, CAP 01/10/23 Hydroxyzine HCl (Hydroxyzine HCl) 25 Mg Tablet, 25 MG PO Q6HPRN PRN for ITCHING, TAB 01/10/23 Sucralfate (Sucralfate) 1 Gm Tablet, 1 GM PO TIDMEALS, TAB 01/10/23 Trazodone HCl (Trazodone HCl) 50 Mg Tablet, 50 MG PO HS, TAB 01/10/23 Vitamin E Mixed (Vitamin E) 400 Unit Capsule, 400 UNIT PO DAILY, CAP 01/10/23 Past Medical History Past Medical History: Anxiety, Arthritis, Asthma, COPD, Depression, Heart Disease, Hypertension Additional Past Medical Hx: ULCERS, GALLSTONES Surgical History: Other Surgical History Other: OOPHORECTOMY Family History: Negative Social History: Negative, Lives with family History: Not Applicable RN Note Reviewed/Agreed w/PFSH: Yes Review of System Dictation Constitutional: Negative for fever,chills, and weight loss positive for body aches Eyes: Negative for injury, pain,redness, and discharge ENT: Negative for injury,pain or swelling Cardiovascular: Negative for palpitations, and edema positive for chest pain Respiratory: Negative for shortness of breath,, and wheezing, positive for cough Abdomen/GI: Negative for abdominal pain, nausea, vomiting, diarrhea, and constipation Back: Negative for injury and pain : Negative for injury, bleeding and discharge MS/Extremity: Negative for injury and deformity Skin: Negative for rash, and discoloration Neuro: Negative for headache, weakness, numbness, tingling, and seizure Psych: Negative for suicide ideation, homicidal ideation, and hallucinations Initial Vital Sign VS Vital Signs Date Time Temp Pulse Resp B/P (MAP) Pulse Ox O2 Delivery O2 Flow Rate FiO2 10/24/24 17:43 98.6 109 18 146/94 97 Room Air 0 Physical Exam Dictation Vital Signs reviewed General Appearance: Alert, oriented x 3, no acute distress, well developed, nourished. Head and Face: non-traumatic. Eyes: PERRL, pink conjunctivas, eyelid no trauma, anterior chamber with arcus senilis. Ears: Pinnas intact and no signs of trauma or erythema ear canals clear and no discharge TM no erythema Nose: No discharge, no bleeding. Oropharynx: Mouth normal, tongue pink. pharynx clear,no erythema, tonsils no exudates, no abscesses noted, mucous membrane moist Neck: Supple, non-tender, no thyromegaly, no masses, no JVD, no bruits Breast:Deferred Chest:+ tenderness, no crepitus, no paradoxical movement, no retractions Lungs:Clear, well-ventilated, symmetric, no rales, no wheezing, no rhonchi, no stridor, good breath sounds bilaterally Heart: Regular rate, regular rhythm, no murmur, no gallops Vascular: no peripheral edema, Abdomen: Soft, positive bowel sounds, nondistended, no guarding, nontender, no rebound, no masses no hepatomegaly, no splenomegaly, no Palomo's sign, no hernias. Rectal: Deferred Genital: Deferred Neurological: Normal speech, motor function intact, sensory function intact Musculoskeletal: Neck nontender, full range of motion, back nontender, full range of motion, Extremities: nontender, full range of motion Skin: Color pink, dry, no turgor, no rash, no lacerations, no abrasions, no contusions. Lymphatic: Deferred Results (Laboratory/Radiology) Laboratory/Radiology Laboratory Tests Test 10/24/24 18:07 10/24/24 18:09 White Blood Count 3.0 K/uL (4.8-10.8) L Red Blood Count 4.84 MIL/uL (4.00-5.50) Hemoglobin 13.8 g/dL (12.0-16.0) Hematocrit 41.9 % (36-48) Mean Corpuscular Volume 86.6 fL (79-99) Mean Corpuscular Hemoglobin 28.5 pg (27.0-33.0) Mean Corpuscular Hemoglobin Concent 32.9 g/dL (32.0-36.0) Red Cell Distribution Width 13.4 % (11.0-15.5) Platelet Count 238 K/uL (130-400) Mean Platelet Volume 10.9 fL (7.5-10.5) H Immature Granulocyte % (Auto) 0.7 % (0-1) Neutrophils (%) (Auto) 65.9 % (40.0-77.0) Lymphocytes (%) (Auto) 31.4 % (21.0-51.0) Monocytes (%) (Auto) 1.7 % (3.0-13.0) L Eosinophils (%) (Auto) 0.0 % (0.0-8.0) Basophils (%) (Auto) 0.3 % (0.0-5.0) Neutrophils # (Auto) 2.0 K/uL (1.8-7.7) Lymphocytes # (Auto) 0.9 K/uL (1.0-4.8) L Monocytes # (Auto) 0.1 K/uL (0.1-1.0) Eosinophils # (Auto) 0.00 K/uL (0.00-0.70) Basophils # (Auto) 0.01 K/uL (0.00-0.20) Absolute Immature Granulocyte (auto 0.02 K/uL (0-1) Segmented Neutrophils % 72 % (40-70) H Band Neutrophils % 1 % (0-2) Lymphocytes % (Manual) 15 % (22-44) L Monocytes % (Manual) 4 % (2-9) Nucleated Red Blood Cells 0.0 % (0.0-0.19) Differential Comment MANUAL DIFFERENTIAL Reactive Lymphocytes 8 % (0-0) H White Cell Morphology Comment Platelet Morphology Comment LARGE PLTS PRESENT Red Blood Cell Morphology See comments Sodium Level 141 mmol/L (136-145) Potassium Level 3.6 mmol/L (3.5-5.1) Chloride Level 107 mmol/L (101-111) Carbon Dioxide Level 23 mmol/L (21-32) Blood Urea Nitrogen 12 mg/dL (7-18) Creatinine 0.9 mg/dL (0.5-1.0) Glomerular Filtration Rate Calc 74 mL/min (>90) Random Glucose 164 mg/dL (70-105) H Total Calcium 9.2 mg/dL (8.5-10.1) Total Creatine Kinase 74 U/L (21-232) Troponin I High Sensitivity < 4 ng/L (4-50) L B-Type Natriuretic Peptide 13 pg/mL (0-100) Influenza Type A Antigen Negative For Type A Influenza Type B Antigen Negative For Type B SARS-CoV-2 Antigen (Rapid) PRESUMPTIVE NEGATIVE REASON: sob ORDERING PHYSICIAN: ELADIA MONDRAGON PROCEDURE: CXR1VW - CHEST 1VW INDICATION: sob TECHNIQUE: CHEST 1VW COMPARISON: 06/18/2023 FINDINGS/IMPRESSION: Prominent bilateral interstitial markings which may represent bronchitis or vascular congestion in the proper clinical setting. Cardiac silhouette is within normal limits. Mild degenerative changes of the spine. The visualized upper abdomen appears unremarkable. Labs Reviewed?: Yes EKG: (-) rhythm EKG Comment: EKG 10/24/2024 1840 ventricular rate 101, regular rate and rhythm, sinus tachycardia, no STEMI. ED Course ED Course Orders Procedure Category Date Status Time Cbc With Differential LAB 10/24/24 Complete 17:57 B-Type Natriuretic LAB 10/24/24 Complete Peptide 17:57 Chest 1vw RAD 10/24/24 Resulted 17:57 12 Lead Ekg Tracing- EKG 10/24/24 Logged Technical 17:57 Creatine Kinase, Total LAB 10/24/24 Complete 17:57 Troponin I High LAB 10/24/24 Complete Sensitivity 17:57 Urinalysis Profile LAB 10/24/24 Logged 17:57 Basic Metabolic Panel LAB 10/24/24 Complete 17:57 Covid19 (Sars Antigen LAB 10/24/24 Complete Rapid) 17:57 Influenza Type A & B, LAB 10/24/24 Complete Rapid 17:57 Manual Differential LAB 10/24/24 Complete 18:07 Methylprednisolone PHA 10/24/24 Complete Succ 125mg (Solu-Medr 19:00 0.9%Nacl 1000ml (Ns PHA 10/24/24 In Process 1000ml) 19:00 Ipratropium/Albuterol PHA 10/24/24 Complete Neb (Duoneb) 19:00 Acetaminophen 500mg PHA 10/24/24 Complete Tab (Tylenol 500mg T 19:00 Benzonatate 100 Mg PHA 10/24/24 Complete Capsule (Tessalon 100 19:00 Current Medications Medications (Trade) Dose Ordered Sig/Rodri Route PRN Reason Start Time Stop Time Status Last Admin Dose Admin Acetaminophen (TYLenol 500MG TAB) 1,000 mg ONCE ONCE PO 10/24/24 19:00 10/24/24 19:01 DC 10/24/24 19:22 Albuterol (DUOneb) 1 UDVIAL ONCE ONCE IH 10/24/24 19:00 10/24/24 19:01 DC 10/24/24 20:29 Benzonatate (Tessalon 100mg Caps) 100 mg ONCE ONCE PO 10/24/24 19:00 10/24/24 19:01 DC 10/24/24 19:20 Methylprednisolone Sodium Succinate (Solu-medROL 125MG) 125 mg ONCE ONCE IVP 10/24/24 19:00 10/24/24 19:01 DC 10/24/24 19:20 Sodium Chloride 1,000 ml @ 125 mls/hr ONCE ONCE IV 10/24/24 19:00 10/25/24 02:59 10/24/24 19:20 Vital Signs Date Time Temp Pulse Resp B/P (MAP) Pulse Ox O2 Delivery O2 Flow Rate FiO2 10/24/24 19:22 99.0 10/24/24 17:43 98.6 109 18 146/94 97 Room Air 0 HEART Score Response (Comments) Value History: Low suspicion (0) 0 EKG: Normal 0 Age: 45-65yrs (+1) 1 Risk Factors: 1-2 risk factors (+1) 1 Initial Troponin: Normal limit (0) 0 Total 2 Medical Decision Making MDM The patient is a 58-year-old female with a history of hypertension who presents to the emergency department with complaints of productive cough, body aches, headache, chest discomfort with the coughing onset four days ago. Patient reports she was with a family member that had flu a and was exposed. Patient reports she went to her primary doctor today and was giving albuterol treatment, zpack, steroids. Denies any nausea, vomiting CBC showed no leukocytosis, no anemia, chemistry showed no electrolyte imbalance, negative troponin, negative BNP, chest x-ray positive for bronchitis. Patient already has her medications given by her PCP. Patient reassessed and reports feeling better. Patient in no acute distress, saturating 97% on room air, stable vital signs. Patient instructed to continue taking medications prescribed by her PCP and follow up with primary doctor. Differential diagnosis: Pneumonia, pneumothorax, ACS, COPD exacerbation Need for hospitalization: Patient does not meet criteria for hospitalization. There are no social concerns with this patient. DX & DISP Disposition: Discharge Departure Impression: Primary Impression: Bronchitis Additional Impressions: Cough, Chest wall pain, Generalized body aches Condition: Stable Additional Instructions: Please continue taking the medications prescribed by your PCP. Follow up with him in 1-2 days. If symptoms worsen please return to ER. FOLLOW-UP WITH PRIMARY CARE PROVIDER IN 1 TO 2 DAYS. TAKE MEDICATIONS DIRECTED HERE IN THE EMERGENCY ROOM. OKAY TO CONTINUE HOME MEDICATIONS UNLESS OTHERWISE DISCUSSED DURING YOUR VISIT IN THE EMERGENCY ROOM TODAY. RETURN TO YOUR NEAREST EMERGENCY ROOM IF SYMPTOMS WORSEN OR IF THERE IS NO IMPROVEMENT. CALL 911 IF YOU NEED IMMEDIATE ASSISTANCE. TAKE TYLENOL OR MOTRIN [id number] NEEDED AND IF NO CONTRAINDICATIONS ARE PRESENT. INCREASE ORAL HYDRATION. A WOUND CULTURE OR URINE CULTURE WAS ORDERED HERE IN THE EMERGENCY ROOM DEPARTMENT PLEASE FOLLOW-UP WITH PRIMARY CARE PROVIDER AND ADVISE THEM TO GET REPEAT PORTS FROM OUR FACILITY. IF YOU HAD ANY TREVA WRAP/SPLINTS THAT WERE APPLIED HERE, PLEASE DO NOT REMOVE THEM UNTIL YOU SEE YOUR PRIMARY CARE OR SPECIALTY. Referrals: NONE (PCP) Time of Disposition: 21:03 I have reviewed the case, and I agree with, Diagnosis and Plan ELADIA MONDRAGON [facility] Oct 24, 2024 21:04
[2024-10-24 21:05] LABS: APPEARANCE,URINE CLEAR (CLEAR); BILIRUBIN,URINE NEGATIVE (NEGATIVE); COLOR,URINE LIGHT-YELLOW (YELLOW); GLUCOSE, URINE (UA) 50 mg/dL (NEGATIVE); KETONES,URINE NEGATIVE (NEGATIVE); LEUKOCYTE ESTERASE ,URINE 25 Leu/uL (NEGATIVE); NITRATE,URINE NEGATIVE (NEGATIVE); OCCULT BLOOD,URINE MODERATE (NEGATIVE); PH,URINE 5.5 (5.0-8.0); PROTEIN,URINE NEGATIVE (NEGATIVE); UROBILINOGEN,URINE 0.2 mg/dL (0.2-1.0)
[2024-10-24 21:06] LABS: ADD UA MICROSCOPIC YES
[2024-10-24 21:08] VITALS: BP 150/79; PULSE 66; RESP 20; TEMP 97.8; O2SAT 100
[2024-10-24 21:09] LABS: BACTERIA,URINE RARE /HPF (None Seen); MUCUS,URINE RARE LPF (None Seen); SQUAMOUS EPITHELIAL CELL,UR RARE /HPF (0-2)
--- NOTE | 2024-10-25 06:04 | EKG ---
[facility] Test Date: 2024-10-24 Test Time: 18:40:03 Pat Name: TORY HERMAN Department: ED Room: Gender: F Electronic Warfare Specialist: [id number] : 1965 Requested By: ELADIA MONDRAGON Order Number: [id number] Reading MD: Russel Tubbs Measurements Intervals [place] Rate: 101 P: 52 ME: 154 QRS: 2 QRSD: 85 T: 14 QT: 362 QTc: 469 Interpretive Statements Sinus tachycardia Compared to ECG 06/27/2021 10:20:58 Sinus rhythm no longer present Electronically Signed On 10-25-2024 14:08:47 CUSTOMER SUPPORT ADVISOR by Russel Tubbs Please click the below link to view image of tracing.
== END 2024-10-24 21:11 | disposition home or self-care (01) ==
LOC: EDH 17:41
DX: J40 Bronchitis, not specified as acute or chronic (principal); R07.89 Other chest pain; F32.A Depression, unspecified; F41.9 Anxiety disorder, unspecified; I11.9 Hypertensive heart disease without heart failure; J44.89 Other specified chronic obstructive pulmonary disease; M19.90 Unspecified osteoarthritis, unspecified site; Z20.822 Contact with and (suspected) exposure to COVID-19; Z90.721 Acquired absence of ovaries, unilateral; Z98.890 Other specified postprocedural states
CPT/HCPCS: 99285; 96374; 71045; 96361; 87426; 82550; 84484; 80048; 83880; 85025; 87804 ×2; 81001; 36415; 93005; 94640; J7030; J2919

== ENCOUNTER 2025-07-15 16:49 | Emergency (ER) | payer OTHER, MEDICAID ==
[~2025-07-15] VITALS: Ht 152.4 cm; Wt 70.8 kg
[~2025-07-15 16:49] MED LIST changes: +DOXY-466 PO; -DOXY100C61 PO
--- NOTE | 2025-07-15 17:15 | NUR ---
PT REMOVED FROM BACK BOARD, PT TOLERATED WELL
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
--- NOTE | 2025-07-15 18:15 | HMCIMG ---
EXAM: CT Cervical Spine Without IV contrast. CLINICAL HISTORY: pain TECHNIQUE: Axial computed tomography images of the cervical spine without intravenous contrast. Sagittal and coronal reformatted images were generated. COMPARISON: None provided. FINDINGS: ALIGNMENT: Bony alignment is anatomic. DEGENERATIVE CHANGES: Mild degenerative changes in the mid to lower cervical spine with disc space narrowing and small osteophytes. SOFT TISSUES: The prevertebral soft tissues are within normal limits. BONES: No acute fracture or aggressive appearing osseous lesion. IMPRESSION: No acute cervical spine abnormality. Mild degenerative change. /[place]
--- NOTE | 2025-07-15 18:30 | HMCIMG ---
EXAM: CT Lumbar Spine Without Intravenous Contrast CLINICAL HISTORY: 59 year female with pain TECHNIQUE: Axial computed tomography images of the lumbar spine without intravenous contrast. Sagittal and coronal reformations performed. Dose reduction technique was used including one or more of the following: automated exposure control, adjustment of mA and kV according to patient size, and/or iterative reconstruction. CONTRAST: NONE COMPARISON: None provided. FINDINGS: BONES: No acute fracture or focal osseous lesion. Bony alignment is anatomic. DISCS / DEGENERATIVE CHANGES: No significant disc or facet degeneration. No significant central canal or neural foraminal stenosis. SOFT TISSUES: No prevertebral soft tissue swelling. IMPRESSION: 1. No acute lumbar spine fracture or dislocation. 2. No significant disc or facet degeneration. 3. No significant central canal or neural foraminal stenosis. /[place]
[2025-07-15 19:15] VITALS: BP 132/76; PULSE 90; RESP 18; TEMP 98.2
== END 2025-07-15 19:19 | disposition home or self-care (01) ==
LOC: EDH 16:49
DX: S13.4XXA Sprain of ligaments of cervical spine, initial encounter (principal); S33.5XXA Sprain of ligaments of lumbar spine, initial encounter; J44.89 Other specified chronic obstructive pulmonary disease; M19.90 Unspecified osteoarthritis, unspecified site; Z90.721 Acquired absence of ovaries, unilateral; V89.2XXA Person injured in unspecified motor-vehicle accident, traffic, initial encounter; Y93.89 Activity, other specified; Y92.89 Other specified places as the place of occurrence of the external cause; Y99.8 Other external cause status
CPT/HCPCS: 99285; 72125; 72131; 96372; J1885